=== PATIENT | male | born 1990 | race Caucasian/White ===

== ENCOUNTER 2017-05-28 12:55 | Emergency (ER) | payer MEDICAID ==
[2017-05-28 13:10] VITALS: BP 108/76
--- NOTE | 2017-05-28 13:31 | ED Physician Documentation ---
PD HPI SKIN - Stated complaint Stated Complaint: LUMP ON R SIDE - Chief complaint Chief Complaint: Wound - History obtained from History obtained from: Patient - History of Present Illness Timing - onset: Other (This is a 26-year-old gentleman with remote history of abscess with MRSA who presents with 1 week history of painful abscess to the pubic bone. No fevers or chills.) Review of Systems Constitutional: denies: Fever, Chills Nose: denies: Rhinorrhea / runny nose, Congestion Respiratory: denies: Dyspnea, Cough PD PAST MEDICAL HISTORY - Present Medications Home Medications: Ambulatory Orders Medication Instructions Recorded Confirmed Sulfamethoxazole/Trimethoprim 1 each PO BID 7 Days tablet 05/28/17 [Sulfamethoxazole-Tmp Ds Tablet] - Allergies Allergies/Adverse Reactions: Allergies Allergy/AdvReac Type Severity Reaction Status Date / Time No Known Drug Allergies Allergy Verified 05/28/17 13:10 - Social History Does the pt smoke?: Yes Smoking Status: Current every day smoker - Immunizations Immunizations are current?: Yes PD ED PE NORMAL - Vitals Vital signs reviewed: Yes - General General: Alert and oriented X 3, No acute distress - Derm Derm: Other (On the pubic bone there is a 1 cm pointed abscess with mild overlying cellulitis.) - Neuro Neuro: Alert and oriented X 3, Normal speech - Psych Psych: Normal mood, Normal affect Results - Vitals Vitals: Vital Signs - 24 hr 05/28/17 13:07 Temperature 37.0 C Heart Rate 69 Respiratory 18 Rate Blood Pressure 108/76 O2 Saturation 100 Oxygen O2 Source Room air Procedures - Abscess I&D (location) groin mid pubic Preparation: Alcohol, Lidocaine 1% Incision: Incised with scalpel, Purulent drainage, Loculations broken, Culture obtained. No: Packed (too small) Other: Pt tolerated well, Dressing applied, Antibiotic prescribed PD MEDICAL DECISION MAKING - ED course ED course: He declined any pain killers Departure - Departure Disposition: 01 Home, Self Care Clinical Impression: Abscess Condition: Good Record reviewed to determine appropriate education?: Yes Instructions: ED Abscess IandD Prescriptions: Sulfamethoxazole/Trimethoprim [Sulfamethoxazole-Tmp Ds Tablet] 1 each PO BID 7 Days tablet Comments: We are performing a wound culture, the results should be done in 48-72 hours. If antibiotic change is necessary we will call you. Return if worse in the meantime, especially if you develop increased pain, fevers, cannot keep down the medication. Otherwise follow-up with your physician in approximately 2-3 days.
[2017-05-28] MEDS ORDERED: BUFFERED LIDOCAINE 10 ML SYRINGE ONE (13:35)
[2017-05-28] MEDS ORDERED: IBUPROFEN 800 MG TABLET PO STA (14:10)
[2017-05-28] MEDS ORDERED: IBUPROFEN 800 MG TABLET PO ONE (14:11)
--- NOTE | 2017-05-30 12:23 | ED Physician Documentation ---
ED Addendum - Addendum Addendum: 05/30/17 12:22 Culture came back as MRSA, resistant to Bactrim. I called the patient at home and spoke with him, he is doing better. I called in a prescription for clindamycin, 150 mg tablets, 2 tablets p.o. 4 times daily 4 times a day to [facility] for 10 days as much as suffices no refills and he will pick it up.
== END 2017-05-28 14:18 | disposition home or self-care (01) ==
LOC: ED 12:55
DX: L02.211 Cutaneous abscess of abdominal wall (principal); B95.62 Methicillin resistant Staphylococcus aureus infection as the cause of diseases classified elsewhere; Z86.14 Personal history of Methicillin resistant Staphylococcus aureus infection; F17.200 Nicotine dependence, unspecified, uncomplicated
CPT/HCPCS: 10060; 87070; 87181; 87205; 99283; A9270